=== PATIENT | male | born 1950 | race Caucasian/White ===

== ENCOUNTER 2022-09-30 09:31 | Outpatient (CLI) | payer MEDICARE, SELFPAY | END 2022-09-30 09:32 | disposition home or self-care (01) | PROVIDERS: PCP Family Medicine; Visit Provider Family Medicine | DX: Z00.00 Encounter for general adult medical examination without abnormal findings (principal); R53.83 Other fatigue; R79.89 Other specified abnormal findings of blood chemistry; I10 Essential (primary) hypertension; Z12.5 Encounter for screening for malignant neoplasm of prostate | CPT/HCPCS: 80048; 80061; 84153 ==

== ENCOUNTER 2022-12-12 12:41 | Outpatient (CLI) | payer MEDICARE, SELFPAY | END 2022-12-12 12:42 | disposition home or self-care (01) | LOC: RAD 12:42 | PROVIDERS: PCP Family Medicine; Visit Provider Family Medicine | DX: R06.09 Other forms of dyspnea (principal); R93.89 Abnormal findings on diagnostic imaging of other specified body structures | CPT/HCPCS: 93306 ==

== ENCOUNTER 2023-01-02 08:46 | Outpatient (CLI) | payer MEDICARE, SELFPAY | END 2023-01-02 08:47 | disposition home or self-care (01) | LOC: NFLDREF 01-04 13:18 | PROVIDERS: PCP Family Medicine; Referring Provider Family Medicine; Visit Provider Family Medicine | DX: R79.89 Other specified abnormal findings of blood chemistry (principal) | CPT/HCPCS: 80053; 84270; 84402; 84403 ==